=== PATIENT | male | born 1945 | race Caucasian/White ===

== ENCOUNTER → 2025-03-18 12:52 | Outpatient (REF) | payer MEDICARE, OTHER, SELFPAY | LOC: RCS 12:52 | PROVIDERS: ATTENDING PHYSICIAN Internal Medicine Cardiovascular Disease; FAMILY PHYSICIAN Family Medicine | DX: I47.29 Other ventricular tachycardia (principal); R06.09 Other forms of dyspnea | CPT/HCPCS: 93017; 93350; Q9957 ==

== ENCOUNTER → 2025-06-21 12:05 | Outpatient (REF) | payer MEDICARE, OTHER, SELFPAY | LOC: SDSPAT 12:05 | PROVIDERS: ATTENDING PHYSICIAN Internal Medicine Cardiovascular Disease; FAMILY PHYSICIAN Family Medicine; OTHER PHYSICIAN Internal Medicine Cardiovascular Disease | DX: I47.29 Other ventricular tachycardia (principal) | CPT/HCPCS: 93005 ==

== ENCOUNTER 2025-06-24 07:58 | Day surgery (SDC) | payer MEDICARE, OTHER, SELFPAY ==
[2025-06-21 12:29] VITALS: BMI 28.1
[2025-06-24 08:15] VITALS: BMI 26.7
[2025-06-24 08:20] VITALS: BP 141/85
[2025-06-24 08:40] LABS: Glucose - Point of Care 125 mg/dl (70-99)
--- NOTE | 2025-06-24 10:54 | ITS.CL.IMPLP ---
[employer] - Implant Loop
Implant Loop
Procedure Report:
Procedure: Extraction of Loop Recorder.
Date of the procedure: 06/24/25
Procedure Physician: Braden Lind MD [facility]
Indication: Old ILR � end of battery.
Description of the procedure:
Patient was brought to the holding area after informed consent was obtained. The time out was performed immediately before the procedure.
The left parasternal chest area was prepped and draped in sterile fashion with chlorahexidine prep x 3 times. Lidocaine 1% was injected subcutaneously for local anesthesia. The loop recorder was palpated and the location was identified. An incision
was made at the previoous insertion location. The blunt dissection was done to identify the location of the ILR. The capsule was cut and the ILR was pulled out of the capsule. The dermis was closed with 4-0 Monocryl sutures and steristrips and a
pressure Tegaderm dressing was placed.
There were no immediate complications.
Patient can be discharged home.
Explanted device:
[employer]; Jot D[employer], Model# [id number]; Serial# [id number].
Implanted on 03/15/23; explanted on 06/24/25.
Conclusion:
Successful removal of the loop recorder.
[2025-06-24 11:02] VITALS: BP 132/93
[2025-06-24 11:17] VITALS: BP 126/70
[2025-06-24 11:32] VITALS: BP 130/84
[2025-06-24 11:45] VITALS: BP 126/80
== END 2025-06-24 12:05 | disposition home or self-care (01) ==
LOC: CATH 07:58
PROVIDERS: ATTENDING PHYSICIAN Internal Medicine Cardiovascular Disease; FAMILY PHYSICIAN Family Medicine; OTHER PHYSICIAN Internal Medicine Cardiovascular Disease
DX: Z09 Encounter for follow-up examination after completed treatment for conditions other than malignant neoplasm (principal); I47.20 Ventricular tachycardia, unspecified; I49.3 Ventricular premature depolarization; E78.5 Hyperlipidemia, unspecified; I35.1 Nonrheumatic aortic (valve) insufficiency; E11.9 Type 2 diabetes mellitus without complications; K21.9 Gastro-esophageal reflux disease without esophagitis; K76.0 Fatty (change of) liver, not elsewhere classified; M19.90 Unspecified osteoarthritis, unspecified site; E03.9 Hypothyroidism, unspecified; Z85.820 Personal history of malignant melanoma of skin; N40.1 Benign prostatic hyperplasia with lower urinary tract symptoms; Z79.82 Long term (current) use of aspirin; Z79.84 Long term (current) use of oral hypoglycemic drugs
CPT/HCPCS: 33286; 82962